=== PATIENT | male | born 1990 | race Caucasian/White ===

== ENCOUNTER 2022-05-31 14:17 | Emergency (ER) | payer MEDICARE, MEDICAID, SELFPAY ==
[2022-05-31 14:33] VITALS: BP 147/90; PULSE 114; RESP 18; TEMP 36.4; O2SAT 96; BMI 30.7
--- NOTE | 2022-05-31 18:08 | ED.NURSE ---
Contacted [facility] to assess pt. They will be calling pt's cell phone to speak with him for consideration.
--- NOTE | 2022-05-31 18:26 | ED.PSYCH ---
HPI - Psych General Date Seen: 05/31/22 Chief Complaint: Psychiatric Problem/Disorder Stated Complaint: Mental health/needs meds Time Seen by Provider: 05/31/22 17:07 Source: patient Mode of arrival: ambulatory Limitations: no limitations History of Present Illness HPI Narrative: Patient is a 31-year-old gentleman who presents here ambulatory for the specific complaint getting back on his psychiatric medications. He notes that was told by his sr. social media & mobile manager as he has been off his medications for the last 2-3 months. He is not suicidal nor is he homicidal, but just thought it would be a good idea possibly to get back on his medicines. He is homeless and living here in [place]. Denies use of alcohol or drugs, presents with a significant other here. Has no idea which medications he is on, there was on in the past. Does admit to me he has been hospitalized a number of times in psychiatric facilities, I see collateral information his chart that he has been sent at least once to [address] [place] [address] for inpatient psychiatric assessment. I did have the pleasure of speaking to lele from [facility], she sees him, she apologized that she was not trying to send the ER just it was hard to make that assessment over the phone. She did get me a bit of a med list, he was on pre leaving his jail in [place] in december. Adderall 25 mg of the XR daily, fluoxetine 600 mg p.o. daily, gabapentin 300 mg at at bedtime, imipramine 25 mg p.o. daily, Lamictal 100 mg of the ER daily, bupropion 150 mg SR daily, amlodipine 5 mg p.o. daily, Abilify 5 mg p.o. daily, propranolol 20 mg p.o. daily, Guanificine 2 mg daily Related Data Home Medications Medication Instructions Recorded Confirmed No Known Home Medications 05/31/22 05/31/22 Allergies Allergy/AdvReac Type Severity Reaction Status Date / Time No Known Drug Allergies Allergy Verified 05/31/22 14:44 Review of Systems Status of ROS: Reports: 10 or more systems reviewed and unremarkable except as noted in History and below [facility] Social History Smoking Status: Current every day smoker What tobacco products do you use: cigarettes Do you use any of these nicotine containing products: E-Cigarettes Second hand tobacco smoke exposure: No How often do you have a drink containing alcohol: never How often do you have six or more drinks on one occasion: Never AUDIT-C Alcohol total score: 0 Non-prescribed substance use: denies use Exam Const: Vital Signs, click to edit/add: Vital Signs - 24 hr 05/31/22 14:33 05/31/22 20:14 Temperature 97.6 F Pulse Rate [Right Pulse Oximeter] 114 H 108 H Respiratory Rate 18 Blood Pressure [Ri ght Upper Arm] 147/90 H Pulse Oximetry 96 99 Oxygen Delivery Me thod Room Air Room Air Patient is seen in room 7 in no apparent distress he is alert oriented very cooperative, pupils equal round reactive to light there is no scleral icterus redness TMs normal oropharynx normal there is no adenopathy anterior posterior chains chest clear heart sounds are normal no clicks murmurs or gallops abdomen is soft there is no guarding no tenderness to palpation or organomegaly. Extremities are all normal, neurologic function is normal. Symmetrical bilaterally Documenting provider has reviewed patient's vital signs: yes Course Course Hospital Course: Patient is accepted into [facility], overnight, they will send a cab to pick him up. He is not suicidal homicidal and not on a hold. Vital Signs Vital signs: Initial Vital Signs Temperature 97.6 F 05/31/22 14:33 Temperature Source Temporal Artery Scan 05/31/22 14:33 Pulse Rate 114 H 05/31/22 14:33 Respiratory Rate 18 05/31/22 14:33 Blood Pressure 147/90 H 05/31/22 14:33 Blood Pressure Mean 109 05/31/22 14:33 Blood Pressure Position Sitting 05/31/22 14:33 Pulse Oximetry 96 05/31/22 14:33 Oxygen Delivery Method 05/31/22 14:33 Vital Signs Temperature 97.6 F 05/31/22 14:33 Pulse Rate 114 H 05/31/22 14:33 Respiratory Rate 18 05/31/22 14:33 Blood Pressure 147/90 H 05/31/22 14:33 Pulse Oximetry 96 05/31/22 14:33 Oxygen Delivery Method 05/31/22 14:33 Temperature 97.6 F 05/31/22 14:33 Pulse Rate 108 H 05/31/22 20:14 Respiratory Rate 18 05/31/22 14:33 Blood Pressure 147/90 H 05/31/22 14:33 Pulse Oximetry 99 05/31/22 20:14 Oxygen Delivery Method 05/31/22 20:14 Discharge Plan Discharge Clinical Impression: Bipolar disorder Patient Disposition: Xfer Other Condition: Stable Instructions: Bipolar Disorder (DC) Additional Instructions: Transfer to crisis Center in [place], they will come and pick you up, please call your sr. social media & mobile manager tomorrow, to inform her of the situation. Prescriptions: No Action No Known Home Medications Stand Alone Forms: Dige[employer] Info Instructions
[2022-05-31 20:14] VITALS: PULSE 108; O2SAT 99
--- NOTE | 2022-05-31 20:15 | ED.NURSE ---
Pt accepted to [facility]. They are sending a taxi to [place] pick[place] pt. Pt okay to DC to lobby and wait for taxi.
== END 2022-05-31 20:24 | disposition other institution (70) ==
PROVIDERS: Emergency Provider Family Medicine
DX: F31.9 Bipolar disorder, unspecified (principal); F17.290 Nicotine dependence, other tobacco product, uncomplicated; Z59.00 Homelessness unspecified
CPT/HCPCS: 99283; 99284; 99285

== ENCOUNTER 2023-03-30 12:25 | Outpatient (CLI) | payer MEDICARE, OTHER, SELFPAY | END 2023-03-30 12:26 | disposition home or self-care (01) | LOC: AMB 04-15 15:40 | PROVIDERS: Visit Provider Student in an Organized Health Care Education/Training Program | DX: S30.811A Abrasion of abdominal wall, initial encounter (principal); S40.211A Abrasion of right shoulder, initial encounter; Y92.411 Interstate highway as the place of occurrence of the external cause | CPT/HCPCS: A0425; A0429 ==

== ENCOUNTER 2023-04-27 07:04 | Outpatient (CLI) | payer MEDICARE, OTHER, SELFPAY | END 2023-04-27 07:05 | disposition home or self-care (01) | LOC: AMB 05-13 13:18 | PROVIDERS: Visit Provider Family Medicine | DX: S09.90XA Unspecified injury of head, initial encounter (principal); S30.810A Abrasion of lower back and pelvis, initial encounter; S60.512A Abrasion of left hand, initial encounter; S00.81XA Abrasion of other part of head, initial encounter; S40.212A Abrasion of left shoulder, initial encounter; V87.8XXA Person injured in other specified noncollision transport accidents involving motor vehicle (traffic), initial encounter; Y92.411 Interstate highway as the place of occurrence of the external cause | CPT/HCPCS: A0425; A0427 ==